=== PATIENT | female | born 1945 | race Caucasian/White ===

== ENCOUNTER 2016-12-12 13:52 | Emergency (ER) | payer OTHER ==
[2016-12-12] MEDS ORDERED: SODIUM CHLORIDE 0.9% 1000ML 1,000 ML IV ONE (14:19)
[2016-12-12 14:32] LABS: BASOPHILS % (AUTO) 1 % (0-3); EOSINOPHILS % (AUTO) 3 % (0-9); HEMATOCRIT 47 % (35-47); MEAN CORPUSCULAR VOLUME 85 fL (81-99); MONOCYTES % (AUTO) 8.7 % (0-12); NEUTROPHILS % (AUTO) 46.8 % (37-80)
[2016-12-12 14:44] VITALS: RESP 16; TEMP 97.8
[2016-12-12 14:51] LABS: ALBUMIN 3.3 gm/dl (3.4-5.0); CALCIUM 8.7 mg/dl (8.5-10.1); MAGNESIUM 1.8 mg/dl (1.8-2.4); POTASSIUM 3.3 mMol/L (3.5-5.1); THYROID STIMULATING HORMONE 0.734 uIU/ml (0.358-3.740)
[2016-12-12] MEDS ORDERED: POTASSIUM CHLORIDE 10 MEQ TER PO SCH (15:15)
[2016-12-12] MEDS ORDERED: POTASSIUM CHLORIDE 10 MEQ TER ONE (15:20)
[2016-12-12 17:49] VITALS: BP 131/75; PULSE 51; O2SAT 99
== END 2016-12-12 16:00 | disposition home or self-care (01) ==
LOC: ED 13:52
DX: E86.0 Dehydration (principal); E87.6 Hypokalemia
CPT/HCPCS: 80053; 83735; 84100; 84443; 85025; 96365; 99284